=== PATIENT | male | born 1940 | race Caucasian/White ===

== ENCOUNTER 2020-12-30 05:50 | Emergency (ER) | payer MEDICARE, OTHER ==
[~2020-12-30] VITALS: Ht 177.8 cm; Wt 79.5 kg
[2020-12-30 06:38] VITALS: BP 136/71
== END 2020-12-30 06:44 | disposition home or self-care (01) | DRG 605 ==
LOC: ED 05:50
DX: S81.811A Laceration without foreign body, right lower leg, initial encounter (principal); W20.8XXA Other cause of strike by thrown, projected or falling object, initial encounter; Y93.89 Activity, other specified; Y92.89 Other specified places as the place of occurrence of the external cause; Y99.0 Civilian activity done for income or pay